=== PATIENT | male | born 1945 | race Two or more races ===

== ENCOUNTER 2018-11-30 18:51 | Emergency (ER) | payer MEDICARE, OTHER ==
[2018-11-30 19:28] LABS: ADD MAN DIFF? NO
[2018-11-30] MEDS: SOD CHLORIDE 0.9% 500 ML IV (19:28)
[2018-11-30 19:33] LABS: WHITE BLOOD COUNT 8.8 10^3/ul (4.8-10.8)
[2018-11-30 19:33] LABS: BASOPHILS % 0.5 % (0.0-2.0); EOSINOPHILS # 0.4 10^3/ul (0.0-0.5); HEMATOCRIT 41.1 % (42.0-52.0); HEMOGLOBIN 13.6 g/dl (14.0-18.0); LYMPHOCYTES # 1.6 10^3/ul (0.8-2.9); LYMPHOCYTES % 18.4 % (15.0-51.0); MEAN CORPUSCULAR HEMOGLOBIN 30.1 pg (29.0-33.0); MEAN CORPUSCULAR HGB CONC 33.1 g/dl (32.0-37.0); MEAN CORPUSCULAR VOLUME 90.9 fl (82.0-101.0); MEAN PLATELET VOLUME 10.8 fl (7.4-10.4); MONOCYTE # 0.9 10^3/ul (0.3-0.9); MONOCYTES % 9.7 % (0.0-11.0); NEUTROPHIL # 5.9 10^3/ul (1.6-7.5); NEUTROPHILS % 66.7 % (39.0-77.0); PLATELET COUNT 166 10^3/UL (140-415); RED BLOOD COUNT 4.52 10^6/ul (4.70-6.10); RED CELL DISTRIBUTION WIDTH 13.4 % (11.5-14.5)
[2018-11-30 19:50] LABS: ANION GAP 6 (5-13); BLOOD UREA NITROGEN 26 mg/dl (7-20); CALCIUM 9.1 mg/dl (8.4-10.2); CARBON DIOXIDE 25 mmol/L (21-31); CHLORIDE 108 mmol/L (97-110); CREATININE 1.22 mg/dl (0.61-1.24); GLUCOSE 91 mg/dl (70-220); POTASSIUM 4.3 mmol/L (3.5-5.1); SODIUM 139 mmol/L (135-144)
[2018-11-30 19:52] LABS: INR 1.01; PARTIAL THROMBOPLASTIN TIME 29.2 Sec (23.0-35.0); PROTIME 13.4 Sec (11.9-14.9)
[2018-11-30 20:00] LABS: B-TYPE NATRIURETIC PEPTIDE 91 PG/ML (0-125); TROPONIN-I < 0.012 ng/ml (0.000-0.120)
[2018-11-30] MEDS: IODIXANOL LOCM 100 ML BTL (21:25)
[2018-11-30] MEDS: SOD CHLORIDE 0.9% 100 ML (21:26)
== END 2018-11-30 22:05 | disposition home or self-care (01) ==
LOC: E/R 18:51
DX: J98.11 Atelectasis (principal); J90 Pleural effusion, not elsewhere classified
CPT/HCPCS: 36415; 71275; 80048; 83880; 84484; 85025; 85610; 85730; 93005; 99285-25